=== PATIENT | female | born 1965 | race Caucasian/White ===

== ENCOUNTER → 2022-01-12 | Outpatient (CLI) | payer BC, SELFPAY ==
--- NOTE | 2022-01-12 16:00 | MRI_ITS ---
STUDY: MRI RIGHT REARFOOT WITHOUT CONTRAST REASON FOR EXAM: Right heel, lateral and dorsal foot pain for one year, no specific injury. TECHNIQUE: Standardized fat and water weighted pulse sequences were obtained in all 3 orthogonal planes. COMPARISON: None. FINDINGS: There is edema in the medial and lateral subcutis adipose space. There is a small volume of fluid in the distal posterior tibialis tendon sheath (T2 axial images 15, 16). The posterior tibialis tendon is morphologically normal. Normal flexor digitorum longus tendon. Normal flexor hallucis longus tendon. There is a small volume of fluid in the perimalleolar peroneal tendon sheath (inversion recovery sagittal image 17). Normal peroneus longus and brevis tendons. Normal tibialis anterior tendon. Normal extensor hallucis longus tendon. Normal extensor digitorum longus tendons. Normal Achilles tendon and teno-osseous insertion. There is mild edema in Kager''s fat triangle (inversion recovery sagittal image 11). There is mild plantar fasciitis (inversion recovery sagittal images 8-11). There is a strain of the proximal abductor digiti minimi muscle (inversion recovery sagittal images 13, 14). Normal intrinsic muscles of the rearfoot. Normal distal tibiofibular syndesmotic ligamentous complex. Normal lateral ligamentous complex. Normal subtalar ligaments and sinus tarsi. Normal deltoid ligamentous complexes. Normal plantar calcaneonavicular (spring) ligament. Normal tibiotalar articulation. Normal talar dome. There is a small posterior subtalar joint effusion (inversion recovery sagittal images 14, 15). Normal talonavicular articulation. Normal calcaneocuboid articulation. Normal navicular-cuneiform articulations. MRI/Lower Ext Joint Only (Routine) IMPRESSION: Mild plantar fasciitis. Strain of the proximal abductor digiti minimi muscle. Mild peroneal tenosynovitis. Mild posterior tibialis tenosynovitis. Mild edema in Kager''s fat triangle. Small posterior subtalar joint effusion. Electronically Signed: Olivier Matta MD at 17:07 EDT ,
== END | disposition home or self-care (01) ==
PROVIDERS: PCP Family Medicine; Visit Provider Podiatrist
DX: M72.2 Plantar fascial fibromatosis (principal)
CPT/HCPCS: 73721

== ENCOUNTER 2022-03-31 16:30 | Outpatient (RCR) | payer BC, SELFPAY ==
--- NOTE | 2022-03-15 16:52 | HP.PTEVAL ---
Patient's Visit Information COLLIN TORERZ is a 56 year old F referred to Physical Therapy by Dr. Shailesh Juarez DPM with a diagnosis of Right Foot Pain. Date of Evaluation: 03/15/22 Physical Therapist: Anastasia Quispe DPT - Visit Plan Frequency: 2x /Week Duration: 3 Weeks Plan: Ultrasound and Gently Manual- Review current HEP - Subjective She has been dealing with plantar fascititis- started at PCP- had cortisone 1st worked well then it stopped. She went to see Dr. Ngo and he also has given her injections and an MRI- MRI showed that she has lots of things going on. Before surgery we need to try PT. He wants her to have PT prior to surgery. For a year she has not been able to exercise. Pain is located in the heel but now its radiating over the ankle and down the top of the foot. She just had in injection a week ago- that did not help. She wears orthotics, exercises, rolled foot on water bottle and tennis ball, night splint and a CAM boot. Describes the pain as a hot knife poking into her heel- the pain down the ankle/foot is hard to describe it just hurts. Has noticed N/T in the foot- also increased swelling- if she moves around the tingling goes away. Worst: 03/22 Agg: everything it just always hurts- really bad when she gets out of bed. Eases: nothing Best: 5/10. Does radiate to the terrazas but not past the knee. Sleep: sometimes disturbed- usually side sleeper. She use to be very active but this has really slowed her down. 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 Goals: feel better or get to surgery. PMHx: none Meds: vitamins - Objective Posture: Fh, RS, can correct but does not maintain. Gait: antalgic- decreased stance on the right LE with poor heel/toe pattern. HR/TR: able with pain. SLS: weight shift but pain with SLS. Palpation: tender along posterior heel, along the 5th MET and across the mortise. Not tender to glides of forefoot but pain with glides of midfoot. ROM: DF: neutral with pain, PF: 60 degrees, Inv: 30 degrees with pain Ever: 20 degrees. Strength: 4+/5 in available range with pain. Flex: Gastroc: moderate Soleus: moderate - Balance/Special Test Scores Lower Extremity Functional Score: 12 - Goals Goal 1:: Patient will be I with HEP and progression Goal Time Frame: 4-6 Weeks Goal 2:: Patient will ambulate >300 feet with a normalized gait pattern Goal Time Frame: 4-6 Weeks Goal 3:: Patient will report 80% improvement Goal Time Frame: 4-6 Weeks - Rehabilitation Potential Physical Therapy Diagnosis: Patient presents with hypomobility- she has decreased propriception, LE strength and flexibility leading to abnormal gait pattern and increased pain with ADL's. Rehabilitation Potential: Fair - Anticipated Interventions Patient/Client Instruction: Educate patient on: Benefits of Fitness Program Therapeutic Exercise to Include: Strength training, Endurance training, Balance training, Coordination, Agility training, Body mechanics, Postural training, Flexibilty training, Gait and locomotor training, Neuromotor development, Dynamic Lumbar Stabilization, Scapular Strength/Stabilization For the Purpose of:: To improve muscle performance and motor function TENS: Yes Cryotherapy (ice pack, ice massage): Yes Thermo therapy (hot pack): Yes Ultrasound (thermal/non thermal): Yes Thank you for the opportunity to evaluate your patient. For Medicare and Medicare HMO plans, please review the plan of care and approve it. It will need to be FAXED BACK to us at [phone] for Medicare purposes. For Medicare only, by signing this I certify the plan of care. Please let me know if there are questions or concerns regarding this plan of care. Physician Signature: Date:
--- NOTE | 2022-05-13 08:06 | HP.PT.NRP ---
COLLINGUSTABO TORREZ was seen in my office for initial evaluation on 03/15/22. The following Plan of Care was established for this patient: Initial Frequency: 2x /Week Initial Duration: 3 Weeks Patient/Client Instruction: Educate patient on: Benefits of Fitness Program Therapeutic Exercise to Include: Strength training, Endurance training, Balance training, Coordination, Agility training, Body mechanics, Postural training, Flexibilty training, Gait and locomotor training, Neuromotor development, Dynamic Lumbar Stabilization, Scapular Strength/Stabilization For the Purpose of:: To improve muscle performance and motor function TENS: Yes Cryotherapy (ice pack, ice massage): Yes Thermo therapy (hot pack): Yes Ultrasound (thermal/non thermal): Yes This patient was last seen in our office . Pertinent comments regarding their Physical therapy will appear below: Patient has not attended physical therapy in over 30 days- at this time d/c is appropriate and return to the MD for further evaluation as needed At this point I will be discontinuing this patient from physical therapy. I would be happy to see this patient again in the future if found appropriate by the physician. Thank you! Anastasia Quispe, IGNACIOT Balance/Gait/Functional tests - Balance/Special Test Scores Lower Extremity Functional Score: 12
== END 2022-03-31 19:00 | disposition home or self-care (01) ==
LOC: PT 16:30
PROVIDERS: PCP Family Medicine; Referring Provider Podiatrist; Visit Provider Podiatrist
DX: M77.51 Other enthesopathy of right foot and ankle (principal)
CPT/HCPCS: 97035; 97110; 97140; 97162

== ENCOUNTER → 2022-04-27 | Outpatient (CLI) | payer BC, SELFPAY ==
[2022-04-27 17:37] LABS: Absolute Lymphocyte Count 2.82 X10^3/uL (0.83-4.51); Absolute Neutrophil Count 3.7 X10^3/uL (2.0-7.7); Basophil# 0.04 X10^3/uL; Basophil% 0.6 % (0-1); Eosinophils% 1.4 % (0-5); Hematocrit 42.2 % (37-47); Hemoglobin 13.2 g/dL (12.0-15.0); Lymphocyte # 2.82 X10^3/ul (0.83-4.51); Lymphocyte % 40.6 % (19-41); Mean Corp Hgb Conc 31.3 g/dL (32-36); Mean Corpuscular Volume 92.7 fL (81-99); Monocyte# 0.29 X10^3/uL; Monocyte% 4.2 % (0-10); NRBC Flagged by Analyzer 0 % (0-5); Neutrophil # 3.65 X10^3/uL (2.7-7.7); Neutrophil % 52.6 % (47-70); Platelet Count 206 K/mm3 (150-450); RBC Distribution Width CV 13.8 % (11.6-14.6); RBC Distribution Width SD 47.2 fl (35.1-43.9); Red Blood Count 4.55 M/mm3 (4.2-5.4); White Blood Count 6.9 K/mm3 (4.4-11.0)
[2022-04-27 18:04] LABS: ALB/GLOB Ratio 1.2 RATIO (0.9-2.4); AST(SGOT) 23 U/L (15-37); Alanine Aminotransfer ALT/SGPT 43 U/L (13-56); Alkaline Phosphatase 82 U/L (45-117); BUN 17 mg/dL (7-18); Calcium,Total 9.6 mg/dL (8.5-10.1); Chloride 106 mmol/L (98-107); Creatinine, Serum 1.13 mg/dL (0.55-1.02); EST Glomerular Filtration Rate 53 mL/min (>60); Est Glom Filt Rate - Afr Amer 64 mL/min (>60); Globulin 3.3 g/dL (2.2-4.2); Glucose 130 mg/dL (74-106); Potassium 3.9 mmol/L (3.5-5.1); Protein, Total 7.3 g/dL (6.4-8.2); Sodium Level 141 mmol/L (136-145)
[2022-04-27 18:05] LABS: Anion Gap 6 (5-15)
== END | disposition home or self-care (01) ==
LOC: MFPLAB 14:54
PROVIDERS: PCP Family Medicine; Visit Provider Family Medicine
DX: Z01.818 Encounter for other preprocedural examination (principal)
CPT/HCPCS: 36415; 80053; 85025

== ENCOUNTER 2022-05-14 12:35 | Day surgery (SDC) | payer BC, SELFPAY ==
[2022-05-14] VITALS (7 sets, daily range): BP systolic 105–147; BP diastolic 71–90; PULSE 70–99; RESP 15–18; TEMP 36.2–36.6; O2SAT 96–99; BMI 31.7
[2022-05-14] MEDS: Lactated Ringers 1,000 ML 15 ML IV ×2 (12:50→16:01)
[2022-05-14] MEDS: Cefazolin 2 GM in 0.9% Normal Saline 100 ML IV (15:11)
[2022-05-14] MEDS: BACITRACIN/POLYMYXIN B 15 GM Tube 1 APPLIC (16:22)
--- NOTE | 2022-05-14 16:26 | OP.PCM_ITS ---
Report of Operation Date of Procedure: 05/14/22 Pre-Operative Diagnosis: 1. Right peroneal tendinopathy 2. Plantar fasciitis right foot Post-Operative Diagnosis: Same Surgery/Procedure Performed:: 1. Peroneal tendon debridement and retubularization right foot 2. 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 Patient brought back to the operating placed comfortably in supine position operating room table. All osseous prominences offloaded prevent any compression neuropraxia's. Patient induced under general anesthesia. Right lower extremity positioned did not got any external rotation. Well-padded thigh tourniquet applied. Right lower extremity scrubbed prepped draped in typical aseptic manner. Right lower extremity was elevated exsanguinated tourniquet inflated to 300 mmHg total tourniquet time was noted to be 52 minutes. Initially the medial aspect of the plantar fascial band at its origin was palpated medially incision was made stab with a 15 blade and using Arthrex is tissue plane finder the plantar fascial band was palpated in the tissue plane finder was extended along the course of the plantar fascia inferiorly and a transverse direction across the band. The skin was tented on the lateral aspect of the foot and second stab incision was made. The tissue plane finder was extended through this incision and the overlying cannula was applied. The site was cleansed with multiple cotton-tipped applicators to clear any debris from site. A 4 oh scope was inserted along the lateral incisional portal the plantar fascial band was noted at this time central lateral and medial bands were all identified and differentiated from each other. Using the hook cutting blade the medial two thirds of the central band were transected. Underlying intrinsic musculature was noted upon transection image was taken of this intraoperatively and noted to maintain the lateral one third of the central band. Incision sites were flushed with copious normal sterile saline after equipment was removed. Incisions were closed using 3-0 Prolene in a horizontal mattress technique. Incision was drawn over and posterior to the lateral malleolus on the right side extended just proximal and distal to the lateral malleolus this was made with a 15 blade through epidermis and dermis into subcutaneous tissue blunt dissection taken down the level deep fascia any bleeders were identified cauterized at this time. Sural nerve was noted at the inferior aspect of the incision this was bluntly retracted and protected throughout the case the deep fascia was incised and the peroneal tendons were then able to be identified. At this time we examined the peroneal tendons and there is no to be some mild degeneration along with significant flattening of the tendons. Some debridement of the tendon was performed and sent to pathology for further examination we tubularization of the peroneus brevis and peroneus longus tendons was performed using 2-0 PDS incision site was flushed with copious amounts of normal sterile saline deep fascial closure was performed with running interlocking 3-0 Vicryl deep subcutaneous closure was performed with simple interrupted technique skin closure performed with 3-0 Prolene using horizontal mattress technique incision sites dressed with bacitracin Adaptic 4 x 4's Kerlix and a well-padded Hedrick posterior splint was applied to the right lower extremity. Tourniquet was deflated noted to be 15 minutes 2 minutes total time Patient tolerated procedure and anesthesia well in apparent satisfactory condition transferred to PACU vital signs stable vascular status intact all digits for further monitoring prior to discharge. Patient remain nonwei ghtbearing to right lower extremity until plantar incisional sites healed.
--- NOTE | 2022-05-17 | TESH_PTH ---
PATIENT: COLLIN TORREZ LOC: [facility] – [place] U#:[id number] AGE/SX: 56/F ROOM: RE05/14/[address]: Dr. Nav Ngo DPM : 1965 BED: DIS: 05/14/2022 SPEC #: [id number] RECD: 05/17/22 08:08 STATUS: SHAE THAD #: [id number] DOMINIC: 05/17/22 00:[address]: Nav Ngo DEPT: SURGICAL PATHOLOGY RECD BY: Amborsio Nuno ENTERED: 05/17/22 10:08 SP TYPE: TENDON OTHR DR: Dr. Adolph Pérez MD Tissues: Tendon and tendon sheath, NOS Procedures: Surgery Specimen Level III HEADER OPERATION: Peroneal tendon debridement/repair with endoscopic plantar PRE-OP DIAGNOSIS: Peroneal tendonitis right ankle, fasciitis right foot TISSUE SUBMITTED: Right peroneal tendon MICROSCOPIC DIAGNOSIS Right peroneal tendon, excision: Tendinous tissue with focal reparative and reactive change. Fibrous tissue, skeletal muscle and fibrofatty tissue with no pathologic change. AM:cait 05/18/2022 MICROSCOPIC DESCRIPTION Slides are reviewed. GROSS DESCRIPTION Received in fixative is one container labeled with the patient's name and designated right peroneal tendon. The specimen consists of an elongated fragment of gross-white tendinous tissue measuring 3 cm in length and 0.5 cm in diameter. The specimen is sectioned and totally submitted in one cassette. / AM:cait 05/17/2022 TC:5 CPT: 12679
== END 2022-05-14 18:16 | disposition home or self-care (01) ==
LOC: SDC 12:35 → AC 12:36
PROVIDERS: PCP Family Medicine; Referring Provider Podiatrist; Visit Provider Podiatrist
PROC: (CPT 29893; principal; 2022-05-14 14:15)
DX: M72.2 Plantar fascial fibromatosis (principal); K21.9 Gastro-esophageal reflux disease without esophagitis
CPT/HCPCS: 29893; 28090; 64450; 01464; 88304; J7120; J2405

== ENCOUNTER 2022-08-09 11:30 | Outpatient (RCR) | payer BC, SELFPAY ==
--- NOTE | 2022-07-26 16:58 | HP.PTEVAL ---
Patient's Visit Information COLLIN TORREZ is a 56 year old F referred to Physical Therapy by Dr. Nav Ngo DPM with a diagnosis of Peroneal tendon debridement and retubularization right foot and Endoscopic. Date of Evaluation: 07/26/22 Physical Therapist: Anastasia Quispe DPT - Visit Plan Frequency: 2x /Week Duration: 4 Weeks Plan: Aquatic- focus on proprioception, flex, strength and functional mobility - Subjective Dec Dr Ngo at the hospital-Peroneal tendon debridement and retubularization right foot and Endoscopic plantar fasciotomy right foot. She has been doing ankle range of motions- she was weight bearing at 4-6 weeks- she is in a shoe now- to wear a shoe all day long is painful- she is still having major swelling. She is not wearing a brace. She can be in a shoe comfortably for an hour standing or sitting at her desk for 3 hours. She can feel her shoe getting tighter- she went back to see him 2 weeks ago- and he said maybe you should start PT. Pain is located in the posterior tunnel into the side of the leg to the mid terrazas, bottom of the foot and the foot feels like it hawley. Can't feel her last two toes since surgery. Worst: 5/10. Best: 1-2/10 Eases: doing nothing. She feels like her ankle is locked. She can't take a step before she needs to hold onto something-but once she is up and moving its okay. - Objective Posture: Fh, RS, can correct but does not maintain. Gait: antalgic- decreased stance on the right LE with poor heel/toe pattern- no brace or AD. HR/TR: able with pain. SLS: weight shift but pain with SLS without pain. Palpation: tender along posterior heel, along the 5th MET and across the mortise. DF: 10 degrees, PF: 60 degrees, Inv: 30 degrees with pain Ever: 20 degrees. Strength: 4+/5 in available range with pain. Flex: Gastroc: moderate Soleus: moderate - Balance/Special Test Scores Lower Extremity Functional Score: 25 - Goals Goal 1:: Patient will be I with HEP and progression Goal Time Frame: 4-6 Weeks Goal 2:: Patient will SLS for 30 sec without LOB and no pain Goal Time Frame: 4-6 Weeks Goal 3:: Patient will ambulate >300 feet with a normalized gait pattern Goal Time Frame: 4-6 Weeks - Rehabilitation Potential Physical Therapy Diagnosis: Patient presents with hypomobility- she has decreased propriception, LE strength and flexibility leading to abnormal gait pattern and increased pain with ADL's. Rehabilitation Potential: Good - Anticipated Interventions Therapeutic Exercise to Include: Strength training, Endurance training, Balance training, Coordination, Agility training, Body mechanics, Postural training, Flexibilty training, Gait and locomotor training, Neuromotor development, In an aquatic setting, Dynamic Lumbar Stabilization, Scapular Strength/Stabilization Thank you for the opportunity to evaluate your patient. For Medicare and Medicare HMO plans, please review the plan of care and approve it. It will need to be FAXED BACK to us at [phone] for Medicare purposes. For Medicare only, by signing this I certify the plan of care. Please let me know if there are questions or concerns regarding this plan of care. Physician Signature: Date:
--- NOTE | 2022-12-27 11:27 | HP.PT.NRP ---
Patient Information Patient Information: COLLIN TORREZ was seen in my office for initial evaluation on 07/26/22. The following Plan of Care was established for this patient: POC Established Initial Frequency: 2x /Week Initial Duration: 4 Weeks Anticipated Interventions Therapeutic Exercise to Include: Strength training, Endurance training, Balance training, Coordination, Agility training, Body mechanics, Postural training, Flexibilty training, Gait and locomotor training, Neuromotor development, In an aquatic setting, Dynamic Lumbar Stabilization and Scapular Strength/Stabilization Last Seen Last Seen: This patient was last seen in our office . Pertinent comments regarding their Physical therapy will appear below: Patient has not attended PT in over 8 week- appropriate to be d/c At this point I will be discontinuing this patient from physical therapy. I would be happy to see this patient again in the future if found appropriate by the physician. Thank you! Anastasia Quispe, DPT Balance/Gait/Functional tests Balance/Special Test Scores Lower Extremity Functional Score: 25
== END 2022-08-09 19:00 | disposition home or self-care (01) ==
LOC: PT 11:30
PROVIDERS: PCP Family Medicine; Referring Provider Podiatrist; Visit Provider Podiatrist
DX: M76.71 Peroneal tendinitis, right leg
CPT/HCPCS: 97110; 97113; 97162

== ENCOUNTER → 2023-04-19 | Outpatient (CLI) | payer BC, SELFPAY ==
--- NOTE | 2023-04-19 | SKIN_PTH ---
PATIENT: COLLIN TORREZ LOC: [facility] U#:[id number] AGE/SX: 57/F ROOM: RE04/19/[address]: Dr. Myrtle Novoa DPM : 1965 BED: DIS: 04/19/2023 SPEC #: [id number] RECD: 04/20/23 10:52 STATUS: SHAE REPerla #: [id number] DOMINIC: 04/19/23 00:[address]: Myrtle Novoa DEPT: SURGICAL PATHOLOGY RECD BY: Shabnam Bella ENTERED: 04/20/23 10:56 SP TYPE: SKIN OTHR DR: Dr. Adolph Pérez MD Tissues: Skin of ankle and foot Procedures: Surgery Specimen Level IV HEADER OPERATION: Skin biopsy PRE-OP DIAGNOSIS: Skin biopsy evaluation TISSUE SUBMITTED: Skin biopsy left heel MICROSCOPIC DIAGNOSIS Skin left heel, biopsy: Superficial pieces of hyperkeratotic epidermis suggestive of superficial portion of verruca vulgaris. See comment. SJ: 04/21/2023 COMMENT Correlation with clinical findings and appropriate follow up are necessary. MICROSCOPIC DESCRIPTION Slides are reviewed. GROSS DESCRIPTION Received is one container labeled with the patient name and designated skin biopsy of heel. The specimen consists of one piece of gross white skin measuring 1 x 1 x 0.2 cm. It is inked and bisected. Also present in the container are multiple fragments of gross white skin measuring in aggregate 2 x 0.5 x 0.2 cm. The specimen is totally submitted in two cassettes. /CHAMP:reanna 04/20/23 TC:5 CPT: 62294
== END | disposition home or self-care (01) ==
PROVIDERS: PCP Family Medicine; Visit Provider Podiatrist
DX: B07.0 Plantar wart (principal)
CPT/HCPCS: 88305